=== PATIENT | male | born 1985 | race Caucasian/White ===

== ENCOUNTER 2018-11-08 15:09 | Inpatient (IN) | payer MEDICARE, MEDICAID ==
[~2018-11-08] VITALS: Ht 180.3 cm; Wt 91.6 kg
[~2018-11-08 15:09] MED LIST: DIVA-78 PO; OLAN5TAB2 PO; OLAN5TAB27 PO
[2018-11-08 15:41] VITALS: BP 122/63
[2018-11-08] MEDS ORDERED: OLANZapine 5 MG RAPDIS TABLET PO PRN (15:45)
[2018-11-08] MEDS ORDERED: LORazepam 2 MG TABLET PO PRN (15:45)
[2018-11-08] MEDS ORDERED: ZOLPIDEM TARTRATE 10 MG TABLET PO PRN (15:45)
[2018-11-08 16:28] VITALS: BP 122/63
[2018-11-08] MEDS ORDERED: LOPERAMIDE HCL 2 MG CAPSULE PO PRN (17:00)
[2018-11-08] MEDS ORDERED: MAGNESIUM HYDROXIDE SUSPENSION 30 ML UDCUP PO PRN (17:00)
[2018-11-08] MEDS ORDERED: MAG HYDROX/AL HYDROX/SIMETH ES 30 ML SUSPENSION UDCUP PO PRN (17:00)
[2018-11-08] MEDS ORDERED: DOCUSATE SODIUM 100 MG CAPSULE PO PRN (17:00)
[2018-11-08] MEDS: NICOTINE 7 MG/24 HOUR PATCH TD SCH (17:21)
[2018-11-08] MEDS: BACITRACIN 28.4 GM OINTMENT TP SCH (18:28)
[2018-11-08 19:29] VITALS: BP 115/68
[2018-11-09 00:48] VITALS: BP 120/81
[2018-11-09] MEDS: IBUPROFEN 400 MG TABLET PO PRN ×2 (00:49→09:48)
[2018-11-09] MEDS: ACETAMINOPHEN 325 MG TABLET PO PRN (03:09)
[2018-11-09 03:12] VITALS: BP 121/68
[2018-11-09 08:06] VITALS: BP 106/66
[2018-11-09 08:19] LABS: BASOPHILS % (AUTO) 0.7 % (0.0-2.0); EOSINOPHILS % (AUTO) 3.9 % (1.0-6.0); HEMATOCRIT 44.7 % (41-53); HEMOGLOBIN 14.8 g/dL (13.5-17.5); LYMPHOCYTES # (AUTO) 1.9 K/uL (1.0-4.8); LYMPHOCYTES % (AUTO) 30.3 % (22.0-44.0); MEAN CORPUSCULAR HEMOGLOBIN 31.7 pg (26.0-34.0); MEAN CORPUSCULAR HGB CONC 33.1 G/dL (31.0-37.0); MEAN CORPUSCULAR VOLUME 96 fL (80-100); MONOCYTES # (AUTO) 0.6 K/uL (0.1-1.0); MONOCYTES % (AUTO) 9.5 % (2.0-9.0); NEUTROPHILS # (AUTO) 3.4 K/uL (1.8-7.7); NEUTROPHILS % (AUTO) 55.6 % (40.0-70.0); PLATELET COUNT (AUTO) 245 K/uL (150-450); RED BLOOD CELL COUNT(AUTO) 4.66 MIL/uL (4.50-5.90); RED CELL DISTRIBUTION WIDTH 13.1 % (11.5-14.5)
[2018-11-09] MEDS: NICOTINE 7 MG/24 HOUR PATCH TD SCH (08:59)
[2018-11-09] MEDS: BACITRACIN 28.4 GM OINTMENT TP SCH ×2 (09:00→17:00)
[2018-11-09 09:35] LABS: ALANINE AMINOTRANSFERASE 34 U/L (12-78); ALBUMIN 3.5 g/dL (3.4-5.0); ALKALINE PHOSPHATASE 73 U/L (46-116); ANION GAP 9 mmol/L (8-16); ASPARTATE AMINOTRANSFERASE 24 U/L (15-37); BILIRUBIN,TOTAL 0.9 mg/dL (0.1-1.0); CARBON DIOXIDE 26 mmol/L (22-29); CHLORIDE 108 mmol/L (98-107); CHOL/HDL RATIO 5.4 (4.2-7.3); CHOLESTEROL 184 mg/dL (131-200); CREATININE 1.15 mg/dL (0.60-1.30); GLOMERULAR FILTR. RATE CALC > 60 mL/min (>60); GLUCOSE,RANDOM 82 mg/dL (70-110); HDL CHOLESTEROL 34 mg/dL (40-60); LDL CHOL (CALC.) 125 mg/dL (0-130); POTASSIUM 4.5 mmol/L (3.5-5.1); SODIUM SERUM 143 mmol/L (136-145); TOTAL PROTEIN, SERUM 6.6 g/dL (6.4-8.2); TRIGLYCERIDES 123 mg/dL (15-150); UREA NITROGEN, BLOOD 19 mg/dL (7-18)
[2018-11-09 09:36] LABS: VALPROIC ACID < 3 mcg/mL (50-100)
[2018-11-09 09:48] VITALS: BP 112/68
[2018-11-09 09:55] LABS: HEMOGLOBIN A1C 5.8 % (4.5-6.2)
[2018-11-09] MEDS ORDERED: DIVALPROEX SODIUM 500 MG DR TABLET PO SCH (11:00)
[2018-11-09] MEDS: OLANZapine 5 MG TABLET PO SCH ×2 (11:49→20:30)
[2018-11-09] MEDS ORDERED: PERMETHRIN 5% 60 GM CREAM TP ONE (16:00)
[2018-11-09 16:30] VITALS: BP 114/68
[2018-11-09] MEDS: DIVALPROEX SODIUM 500 MG DR TABLET PO SCH (20:31)
[2018-11-10 00:29] VITALS: BP 124/80
[2018-11-10] MEDS: OLANZapine 5 MG TABLET PO SCH ×2 (08:40→20:06)
[2018-11-10] MEDS: NICOTINE 7 MG/24 HOUR PATCH TD SCH (08:40)
[2018-11-10] MEDS: BACITRACIN 28.4 GM OINTMENT TP SCH ×2 (08:40→17:06)
[2018-11-10 08:49] VITALS: BP 117/75
[2018-11-10 12:28] VITALS: BP 112/72
[2018-11-10] MEDS: ACETAMINOPHEN 325 MG TABLET PO PRN (12:28)
[2018-11-10 16:11] VITALS: BP 118/79
[2018-11-10] MEDS: DIVALPROEX SODIUM 500 MG DR TABLET PO SCH (20:06)
[2018-11-10 21:45] VITALS: BP 112/74
[2018-11-10] MEDS: IBUPROFEN 400 MG TABLET PO PRN (21:45)
[2018-11-11 01:07] VITALS: BP 118/78
[2018-11-11 07:40] LABS: AMPHET/METH SCREEN,URINE NEGATIVE (NEGATIVE); BARBITURATE SCREEN, URINE NEGATIVE (NEGATIVE); BENZODIAZEPINES SCREEN,URINE NEGATIVE (NEGATIVE); CANNABINOID SCREEN,URINE NEGATIVE (NEGATIVE); COCAINE SCREEN,URINE NEGATIVE (NEGATIVE); METHADONE SCREEN, URINE NEGATIVE (NEGATIVE); OPIATE SCREEN,URINE NEGATIVE (NEGATIVE)
[2018-11-11 07:41] LABS: PHENCYCLIDINE SCREEN,URINE NEGATIVE (NEGATIVE)
[2018-11-11 07:54] LABS: APPEARANCE,URINE CLEAR (CLEAR); BILIRUBIN,URINE NEGATIVE (NEGATIVE); GLUCOSE, URINE (UA) NEGATIVE (NEGATIVE); KETONES,URINE NEGATIVE (NEGATIVE); LEUKOCYTE ESTERASE ,URINE NEGATIVE (NEGATIVE); NITRATE,URINE NEGATIVE (NEGATIVE); OCCULT BLOOD,URINE NEGATIVE (NEGATIVE); PH,URINE 5.5 (5.0-8.0); PROTEIN,URINE NEGATIVE (NEGATIVE); UROBILINOGEN,URINE 0.2 mg/dL (<=1.0)
[2018-11-11] MEDS: OLANZapine 5 MG TABLET PO SCH ×2 (08:10→20:10)
[2018-11-11] MEDS: NICOTINE 7 MG/24 HOUR PATCH TD SCH (08:10)
[2018-11-11] MEDS: BACITRACIN 28.4 GM OINTMENT TP SCH ×2 (08:13→16:05)
[2018-11-11] MEDS: ACETAMINOPHEN 325 MG TABLET PO PRN (08:13)
[2018-11-11 08:16] VITALS: BP 124/78
[2018-11-11] MEDS ORDERED: TUBERCULIN, PURIFIED PROTEIN DERIVATIVE 5 TU/0.1 ML SYRINGE ID ONE (09:45)
[2018-11-11] MEDS ORDERED: PERMETHRIN 5% 60 GM CREAM TP ONE (09:45)
[2018-11-11 16:06] VITALS: BP 123/85
[2018-11-11] MEDS: IBUPROFEN 400 MG TABLET PO PRN (16:06)
[2018-11-11] MEDS: DIVALPROEX SODIUM 500 MG DR TABLET PO SCH (20:10)
[2018-11-12 00:21] VITALS: BP 121/73
[2018-11-12 08:21] VITALS: BP 118/73
[2018-11-12] MEDS: BACITRACIN 28.4 GM OINTMENT TP SCH ×2 (08:38→16:34)
[2018-11-12] MEDS: NICOTINE 7 MG/24 HOUR PATCH TD SCH (08:38)
[2018-11-12] MEDS: OLANZapine 5 MG TABLET PO SCH ×2 (08:38→20:47)
[2018-11-12 16:24] VITALS: BP 116/75
[2018-11-12] MEDS: DIVALPROEX SODIUM 500 MG DR TABLET PO SCH (20:47)
[2018-11-12 21:29] VITALS: BP 119/80
[2018-11-12] MEDS: IBUPROFEN 400 MG TABLET PO PRN (21:31)
[2018-11-13 00:12] VITALS: BP 122/80
[2018-11-13 08:10] VITALS: BP 106/71
[2018-11-13] MEDS: OLANZapine 5 MG TABLET PO SCH ×2 (08:49→20:36)
[2018-11-13] MEDS: ACETAMINOPHEN 325 MG TABLET PO PRN (08:50)
[2018-11-13] MEDS: BACITRACIN 28.4 GM OINTMENT TP SCH ×2 (08:50→16:31)
[2018-11-13] MEDS: NICOTINE 7 MG/24 HOUR PATCH TD SCH (08:50)
[2018-11-13] MEDS: IBUPROFEN 400 MG TABLET PO PRN (16:02)
[2018-11-13 16:04] VITALS: BP 136/86
[2018-11-13] MEDS: DIVALPROEX SODIUM 500 MG DR TABLET PO SCH (20:35)
[2018-11-14 05:42] VITALS: BP 122/85
[2018-11-14] MEDS: OLANZapine 5 MG TABLET PO SCH (08:17)
[2018-11-14] MEDS: BACITRACIN 28.4 GM OINTMENT TP SCH (08:18)
[2018-11-14] MEDS: IBUPROFEN 400 MG TABLET PO PRN (08:18)
[2018-11-14] MEDS: NICOTINE 7 MG/24 HOUR PATCH TD SCH (08:18)
[2018-11-14 08:48] VITALS: BP 112/69
== END 2018-11-14 12:50 | disposition home or self-care (01) | DRG 885 ==
LOC: B2X 15:53 → EDSTATUS 15:56 → B2X 16:24
PROVIDERS: ADMIT Psychiatry & Neurology Psychiatry; ATTEND Psychiatry & Neurology Psychiatry
DX: F25.0 Schizoaffective disorder, bipolar type (principal); F10.10 Alcohol abuse, uncomplicated; F17.200 Nicotine dependence, unspecified, uncomplicated; F19.10 Other psychoactive substance abuse, uncomplicated; F41.9 Anxiety disorder, unspecified; J45.909 Unspecified asthma, uncomplicated; Z59.0 Homelessness; Z79.899 Other long term (current) drug therapy; Z71.41 Alcohol abuse counseling and surveillance of alcoholic; Z71.51 Drug abuse counseling and surveillance of drug abuser
CPT/HCPCS: 80307; 83036; 84436; 84443